=== PATIENT | female | born 1985 | race Asian ===

== ENCOUNTER 2017-09-03 10:14 | Inpatient (IN) | payer SELFPAY ==
[2017-09-02 12:59] LABS: BILIRUBIN,URINE NEGATIVE (NEGATIVE); BLOOD, URINE NEGATIVE (NEGATIVE); CLARITY/URINE SL HAZY (CLEAR); COLOR,URINE YELLOW (YELLOW); GLUCOSE,URINE NEGATIVE (NEGATIVE); KETONES,URINE TRACE (NEGATIVE); LEUKOCYTE ESTERASE ,URINE TRACE (NEGATIVE); NITRITE, URINE NEGATIVE (NEGATIVE); PH,URINE 6.5 (5.0-8.0); PROTEIN URINE NEGATIVE (NEGATIVE); UROBILINOGEN,URINE 0.2 (0.2-1.0)
[2017-09-02 13:01] LABS: BASOPHILS % (AUTO) 0.3 % (0.0-2.0); EOSINOPHILS # (AUTO) 0.1 K/uL (0.0-0.4); EOSINOPHILS % (AUTO) 1.2 % (0.0-4.0); HEMATOCRIT 36.9 % (36-48); HEMOGLOBIN 12.5 g/dL (12.0-16.0); LYMPHOCYTES # (AUTO) 1.5 K/uL (1.0-5.5); LYMPHOCYTES % (AUTO) 16.9 % (20.5-51.5); MEAN CORPUSCULAR HEMOGLOBIN 31 pg (27-31); MEAN CORPUSCULAR HGB CONC 34 % (32-36); MEAN CORPUSCULAR VOLUME 92 fL (79.0-98.0); MONOCYTES # (AUTO) 0.5 K/uL (0.0-1.0); MONOCYTES % (AUTO) 6.1 % (1.7-9.3); NEUTROPHILS # (AUTO) 6.7 K/uL (1.8-7.7); NEUTROPHILS % (AUTO) 75.5 % (40.0-70.0); PLATELET COUNT (AUTO) 176 K/uL (130-430); RED CELL DISTRIBUTION WIDTH 12.1 % (9.0-15.0); WHITE BLOOD COUNT (AUTO) 8.8 K/uL (4.8-10.8)
[2017-09-02 13:29] LABS: BACTERIA,URINE FEW /HPF (None Seen)
[2017-09-02 13:30] LABS: MUCUS,URINE 1+ /LPF (None Seen)
[~2017-09-03] VITALS: Ht 152 cm; Wt 54.9 kg
[2017-09-03] MEDS ORDERED: LR 1,000 ML IV ONE (11:03)
[2017-09-03] MEDS ORDERED: CEFAZOLIN 2 GM IVPB PREMIX 50 ML IV ONE (11:15)
[2017-09-03] MEDS ORDERED: OXYTOCIN 10 UNIT/ML VIAL IV ONE (12:25)
[2017-09-03] MEDS ORDERED: NS IRRIG SOLN 1000 ML IR ONE (12:25)
[2017-09-03] MEDS ORDERED: MIDAZOLAM HCL 5 MG/5 ML VIAL IVP ONE (12:25)
[2017-09-03] MEDS ORDERED: ONDANSETRON HCL 4 MG/2 ML VIAL IVP ONE (12:25)
[2017-09-03] MEDS ORDERED: LR 1,000 ML IV.SOLN IV ONE (12:25)
[2017-09-03] MEDS ORDERED: OXYTOCIN/NORMAL SALINE 1,000 ML IV ONE ×2 (12:37→13:29)
[2017-09-03] MEDS ORDERED: LR 1,000 ML IV SCH ×2 (12:37→13:01)
[2017-09-03] MEDS ORDERED: ANUSOL 1 EA SUPP.RECT (PREPARATION H) RC PRN (12:45)
[2017-09-03] MEDS ORDERED: SENNOSIDES/DOCUSATE SODIUM 1 TAB TABLET(SENOKOT-S) PO PRN (12:45)
[2017-09-03] MEDS ORDERED: ACETAMINOPHEN 325 MG TABLET PO PRN (12:45)
[2017-09-03] MEDS ORDERED: HYDROcodone/ACETAMIN 5-325 MG TAB (NORCO/ VICODIN) PO PRN ×2 (12:45)
[2017-09-03] MEDS ORDERED: BISACODYL 10 MG/SUPPOSITORY RC PRN (12:45)
[2017-09-03] MEDS ORDERED: MEASLES,MUMPS&RUBELLA VACC/PF 12500 UNIT/0.5 ML VIAL SUBQ PRN (12:45)
[2017-09-03] MEDS ORDERED: TEMAZEPAM 15 MG CAPSULE PO PRN (12:45)
[2017-09-03] MEDS ORDERED: RHO(D) IMMUNE GLOBULIN/MALTOSE 1500 UNITS/1.3 ML (WINHRO) IM PRN (12:45)
[2017-09-03] MEDS ORDERED: LANOLIN 7 GM OINT. TP PRN (12:45)
[2017-09-03] MEDS ORDERED: SIMETHICONE 80 MG TAB.CHEW PO PRN (12:45)
[2017-09-03] MEDS ORDERED: NALOXONE HCL 0.4 MG/ML AMP (NARCAN) IVP PRN (13:15)
[2017-09-03] MEDS ORDERED: MORPHINE SULFATE 10MG/10ML PF AMP SP SCH (13:15)
[2017-09-03] MEDS ORDERED: DIPHENHYDRAMINE INJ 50 MG/ML VIAL IM PRN (13:15)
[2017-09-03] MEDS ORDERED: METOCLOPRAMIDE HCL 10 MG/2 ML VIAL IVP PRN (13:15)
[2017-09-03] MEDS ORDERED: ONDANSETRON HCL 4 MG/2 ML VIAL IVP PRN (13:15)
[2017-09-03] MEDS ORDERED: KETOROLAC TROMETHAMINE 60 MG/2 ML VIAL IM PRN (13:15)
[2017-09-03 16:55] VITALS: BP_SYST 120
[2017-09-03] MEDS ORDERED: FLU VACC QS 2017-18(36MOS+)/PF 0.5 ML/SYR SYRINGE I.M. PRN (17:00)
[2017-09-03] MEDS ORDERED: DIPHENHYDRAMINE INJ 50 MG/ML VIAL IVP PRN (18:30)
[2017-09-03] MEDS ORDERED: DIPH-TET-PERTUS Vaccine 0.5 ML VIAL/Tdap (ADACEL) I.M. PRN (20:15)
[2017-09-04] MEDS: IBUPROFEN 600 MG TABLET PO SCH ×4 (05:44→23:55)
[2017-09-04 07:01] LABS: BASOPHILS % (AUTO) 0.2 % (0.0-2.0); EOSINOPHILS # (AUTO) 0.1 K/uL (0.0-0.4); EOSINOPHILS % (AUTO) 0.5 % (0.0-4.0); HEMATOCRIT 33.3 % (36-48); HEMOGLOBIN 11.1 g/dL (12.0-16.0); LYMPHOCYTES # (AUTO) 1.5 K/uL (1.0-5.5); LYMPHOCYTES % (AUTO) 11.2 % (20.5-51.5); MEAN CORPUSCULAR HEMOGLOBIN 31 pg (27-31); MEAN CORPUSCULAR HGB CONC 34 % (32-36); MEAN CORPUSCULAR VOLUME 93 fL (79.0-98.0); MONOCYTES # (AUTO) 0.6 K/uL (0.0-1.0); MONOCYTES % (AUTO) 4.7 % (1.7-9.3); PLATELET COUNT (AUTO) 156 K/uL (130-430); RED BLOOD CELL COUNT(AUTO) 3.57 MIL/uL (4.2-6.2); RED CELL DISTRIBUTION WIDTH 12.5 % (9.0-15.0); WHITE BLOOD COUNT (AUTO) 13.2 K/uL (4.8-10.8)
[2017-09-04 08:08] LABS: NEUTROPHILS % (AUTO) 83.4 % (40.0-70.0)
[2017-09-04] MEDS: DOCUSATE SODIUM 100 MG CAPSULE PO PRN (23:18)
[2017-09-05] MEDS: IBUPROFEN 600 MG TABLET PO SCH ×3 (06:00→17:55)
[2017-09-05] MEDS: DOCUSATE SODIUM 100 MG CAPSULE PO PRN (16:53)
== END 2017-09-05 19:35 | disposition home or self-care (01) | DRG 766 ==
LOC: SPU 10:14
PROVIDERS: ADMIT Obstetrics & Gynecology; ATTEND Obstetrics & Gynecology
PROC: 10D00Z1 Extraction of Products of Conception, Low, Open Approach (ICD-10-PCS; principal; 2017-09-03 12:30)
DX: O36.60X0 Maternal care for excessive fetal growth, unspecified trimester, not applicable or unspecified (principal); O99.824 Streptococcus B carrier state complicating childbirth; Z37.0 Single live birth; Z3A.39 39 weeks gestation of pregnancy
CPT/HCPCS: 36415; 81000-TC; 85025; 86592; 86886; 86900; 86901; 90715; 94760; J0690; J1200; J2250; J2405; J2590; J7120; Q2037